=== PATIENT | female | born 1945 | race Caucasian/White ===

== ENCOUNTER → 2017-11-23 | Outpatient (CLI) | payer OTHER | LOC: FIMAGING 12:33 | PROVIDERS: ATTEND Neurological Surgery | DX: M25.78 Osteophyte, vertebrae (principal); Z98.1 Arthrodesis status ==

== ENCOUNTER → 2019-01-11 | Outpatient (CLI) | payer OTHER | LOC: CIMAGING 14:40 | PROVIDERS: ATTEND Registered Nurse | DX: S32.591A Other specified fracture of right pubis, initial encounter for closed fracture (principal); E05.00 Thyrotoxicosis with diffuse goiter without thyrotoxic crisis or storm; E04.1 Nontoxic single thyroid nodule | CPT/HCPCS: 72100-PO; 73521-PO ==